=== PATIENT | female | born 1960 | race Caucasian/White ===

== ENCOUNTER 2017-11-08 21:35 | Emergency (ER) | payer MEDICAID ==
[~2017-11-08] VITALS: Ht 157.5 cm; Wt 72.6 kg
[2017-11-09] MEDS ORDERED: MECLIZINE HCL25 MG PO (00:41)
== END 2017-11-09 00:56 | disposition home or self-care (01) ==
LOC: ED 21:35
DX: H81.20 Vestibular neuronitis, unspecified ear (principal); K21.9 Gastro-esophageal reflux disease without esophagitis; Z88.5 Allergy status to narcotic agent
CPT/HCPCS: 80053; 81001; 83690; 85025; 96361; 96374; 96375; 99283; J2405; J2550; J7030